=== PATIENT | male | born 1930 | race Caucasian/White ===

== ENCOUNTER 2018-11-03 09:40 | Emergency (ER) | payer OTHER ==
[~2018-11-03] VITALS: Ht 172.7 cm; Wt 88.7 kg
[2018-11-03] MEDS ORDERED: ONDANSETRON HCL4 M2 PO (09:51)
[2018-11-03] MEDS ORDERED: VITAMIN D31000 UNIT PO (09:52)
[2018-11-03] MEDS ORDERED: B12INJ PO (09:52)
[2018-11-03] MEDS ORDERED: HYTRIN 1 MG CAP1 MG PO (09:53)
[2018-11-03] MEDS ORDERED: PHENOBARBITAL97.2 M2 PO (09:53)
[2018-11-03] MEDS ORDERED: LAMICTAL XR100 MG PO (09:54)
[2018-11-03] MEDS ORDERED: HYDROCHLOROTH12.5 M1 PO (09:54)
[2018-11-03] MEDS ORDERED: KEPPRA750 MG PO (09:54)
[2018-11-03] MEDS ORDERED: CALCIUM 600 +1 EAC1 PO (09:55)
[2018-11-03] MEDS ORDERED: LIPITOR10 MG PO (09:55)
[2018-11-03] MEDS ORDERED: ASPIR 8181 MG PO (09:56)
[2018-11-03] MEDS ORDERED: COLACE100 MG PO (09:57)
[2018-11-03] MEDS ORDERED: VISTARIL 25 MG25 M1 PO (09:57)
[2018-11-03] MEDS ORDERED: TAMIFLU75 MG PO (09:58)
[2018-11-03] MEDS ORDERED: COUMADIN 1MG TAB1 M1 PO (09:58)
[2018-11-03] MEDS ORDERED: COUMADIN 3 MG TA3 MG PO (09:58)
[2018-11-03 12:22] VITALS: BP 133/107
== END 2018-11-03 12:22 | disposition home or self-care (01) ==
LOC: M.ERS 09:40
DX: S00.81XA Abrasion of other part of head, initial encounter (principal); R10.31 Right lower quadrant pain; W01.0XXA Fall on same level from slipping, tripping and stumbling without subsequent striking against object, initial encounter; Y93.89 Activity, other specified; Y92.89 Other specified places as the place of occurrence of the external cause; Y99.8 Other external cause status

== ENCOUNTER 2018-11-13 14:16 | Inpatient (IN) | payer OTHER ==
[~2018-11-13] VITALS: Ht 162.6 cm; Wt 86.6 kg
[~2018-11-13 14:16] MED LIST: ASPIR 8181 MG PO; B12INJ PO; CALCIUM 600 +1 EAC1 PO; COLACE100 MG PO; COUMADIN 1MG TAB1 M1 PO; COUMADIN 3 MG TA3 MG PO; HYDROCHLOROTH12.5 M1 PO; HYTRIN 1 MG CAP1 MG PO; KEPPRA750 MG PO; LAMICTAL100 MG PO; LIPITOR10 MG PO; ONDANSETRON HCL4 M2 PO; PHENOBARBITAL97.2 M2 PO; TAMIFLU75 MG PO; VISTARIL 25 MG25 M1 PO; VITAMIN D31000 UNIT PO
[2018-11-13 14:17] VITALS: BP 96/65
[2018-11-13 14:29] LABS: ABSOLUTE EOSINOPHILS 0.1 thou/uL (0.0-0.7); ABSOLUTE LYMPHOCYTES 1.7 thou/uL (0.8-5.3); ABSOLUTE MONOCYTES 1.1 thou/uL (0.0-1.2); ABSOLUTE NEUTROPHILS 4.9 thou/uL (1.6-8.1); BASOPHILS 0.6 %; EOSINOPHILS 0.8 %; HEMATOCRIT 33.8 % (42.0-52.0); HEMOGLOBIN 11.7 gm/dL (14.0-18.0); LYMPHOCYTES 21.8 %; MCH 33.1 pg (26.0-34.0); MCHC 34.6 g/dL (28.0-37.0); MCV 95.6 fL (80.0-100.0); MONOCYTES 13.8 %; MPV 7.3 fl. (7.2-11.1); NUCLEATED RBCS 0 /100WBC; PLATELET COUNT* 377 thou/uL (150-400); RBC 3.54 mil/uL (4.50-6.00); RDW-CV 13.4 % (10.5-14.5); WBC 7.8 thou/uL (4.0-11.0)
[2018-11-13] MEDS ORDERED: AMLODIPINE BESY10 MG PO (14:30)
[2018-11-13 14:39] LABS: APTT 40.8 Seconds (25.0-31.3); INR 3.7; PROTIME 37.5 Seconds (9.20-11.50)
[2018-11-13 14:48] LABS: ANION GAP 4 mmol/L (7-16); BUN 21 mg/dL (7-18); CHLORIDE 100 mmol/L (98-107); CO2 36 mmol/L (21-32); CREATININE 1.4 mg/dL (0.6-1.3); GLUCOSE 127 mg/dL (70-99); POTASSIUM 3.1 mmol/L (3.5-5.1); SODIUM 140 mmol/L (136-145); TROPONIN-I LEVEL <0.06 ng/mL (<0.06)
[2018-11-13 14:50] LABS: ALBUMIN 2.9 g/dL (3.4-5.0); ALKALINE PHOSPHATASE 93 U/L (46-116); CALCIUM 12.4 mg/dL (8.5-10.1); NT-PRO BRAIN NAT PEPTIDE 192 pg/mL (<300); SGOT 22 U/L (15-37); SGPT 12 U/L (30-65); TOTAL BILIRUBIN 0.2 mg/dL (<0.1-1.0); TOTAL PROTEIN 6.7 g/dL (6.4-8.2)
[2018-11-13 15:56] VITALS: BP 96/65
[2018-11-13 16:58] LABS: URINE BILIRUBIN NEGATIVE (Negative); URINE BLOOD NEGATIVE (Negative); URINE CLARITY CLEAR; URINE COLOR YELLOW; URINE GLUCOSE-RANDOM NEGATIVE (Negative); URINE KETONES NEGATIVE (Negative); URINE LEUKOCYTES-REFLEX NEGATIVE (Negative); URINE NITRITE-REFLEX NEGATIVE (Negative); URINE PROTEIN NEGATIVE (Negative); URINE SPECIFIC GRAVITY 1.015 (1.005-1.030); URINE UROBILINOGEN 0.2 E.U./dl (0.2-1.0)
[2018-11-13 20:00] VITALS: BP 154/62
[2018-11-14] VITALS (7 sets, daily range): BP systolic 111–149; BP diastolic 61–86
[2018-11-14 08:30] LABS: CALCIUM 11.6 mg/dL (8.5-10.1); POTASSIUM 3.6 mmol/L (3.5-5.1)
[2018-11-14 08:37] LABS: CALCIUM 11.4 mg/dL (8.5-10.1)
[2018-11-14 11:26] LABS: CREATININE 1.1 mg/dL (0.6-1.3)
--- NOTE | 2018-11-14 14:32 | EKG ---
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 : 1930 Requested By: Ramirez Cade Order Number: [id number] MD: Frankie Villanueva Measurements Intervals [place] Rate: 78 P: 14 TN: 143 QRS: -14 QRSD: 109 T: 51 QT: 387 QTc: 441 Interpretive Statements Sinus rhythm Abnormal R-wave progression, early transition Borderline T abnormalities, anterior leads No previous ECG available for comparison Electronically Signed On 11-14-2018 14:32:06 CDT by Frankie Villanueva [email or web address] <ELECTRONICALLY SIGNED> By: Frankie Villanueva MD, [facility] 11/14/18 1432 1414 141 Frankie Villanueva MD, FAC /EPI
[2018-11-15] VITALS: BP 166/98
[2018-11-15 04:09] VITALS: BP 170/87
[2018-11-15 07:40] VITALS: BP 145/73
[2018-11-15 10:45] LABS: INR 2.8; PROTIME 28.9 Seconds (9.20-11.50)
[2018-11-15 16:00] VITALS: BP 125/66
[2018-11-15 17:15] VITALS: BP 134/65
[2018-11-15 20:10] VITALS: BP 149/74
[2018-11-16 04:28] LABS: HEMATOCRIT 33.2 % (42.0-52.0); HEMOGLOBIN 11.4 gm/dL (14.0-18.0); MCH 32.9 pg (26.0-34.0); MCHC 34.3 g/dL (28.0-37.0); MCV 95.8 fL (80.0-100.0); MPV 7.3 fl. (7.2-11.1); RBC 3.47 mil/uL (4.50-6.00); RDW-CV 13.3 % (10.5-14.5); WBC 5.8 thou/uL (4.0-11.0)
[2018-11-16 04:30] VITALS: BP 160/75
[2018-11-16 04:35] LABS: INR 1.8; PROTIME 18.1 Seconds (9.20-11.50)
[2018-11-16 04:48] LABS: CALCIUM 11.1 mg/dL (8.5-10.1); MAGNESIUM 1.7 mg/dL (1.8-2.4); POTASSIUM 3.9 mmol/L (3.5-5.1)
[2018-11-16 08:25] VITALS: BP 160/76
[2018-11-16 12:00] VITALS: BP 143/56
[2018-11-16 16:00] VITALS: BP 128/63
[2018-11-17] VITALS: BP 157/73
[2018-11-17 02:05] LABS: LEVETIRACETAM (KEPPRA) 13.6 ug/mL (10.0-40.0)
[2018-11-17 04:00] VITALS: BP 170/75
[2018-11-17 04:32] LABS: INR 1.3
[2018-11-17 08:30] VITALS: BP 165/84
[2018-11-17 12:30] VITALS: BP 107/57
[2018-11-17 16:00] VITALS: BP 126/66
[2018-11-17 20:00] VITALS: BP 130/47
[2018-11-18 05:08] LABS: INR 1.1; PROTIME 11.7 Seconds (9.20-11.50)
[2018-11-18 08:00] VITALS: BP 151/69
[2018-11-18 20:00] VITALS: BP 132/65
[2018-11-19 04:47] LABS: INR 1.6; PROTIME 15.9 Seconds (9.20-11.50)
[2018-11-19 05:05] LABS: CALCIUM 10.1 mg/dL (8.5-10.1); CREATININE 1.2 mg/dL (0.6-1.3); POTASSIUM 4.1 mmol/L (3.5-5.1)
[2018-11-19 11:02] VITALS: BP 132/65
[2018-11-19 11:54] VITALS: BP 131/59
[2018-11-19 15:56] VITALS: BP 132/65
== END 2018-11-19 15:40 | DRG 70 ==
LOC: M.ERS 14:16 → M.3W 15:17 → M.TBA-ER 15:17 → M.3W 16:08
PROVIDERS: Family Medicine; Internal Medicine; ADMIT Internal Medicine
DX: G93.41 Metabolic encephalopathy (principal); N17.0 Acute kidney failure with tubular necrosis; C64.9 Malignant neoplasm of unspecified kidney, except renal pelvis; D68.59 Other primary thrombophilia; E44.0 Moderate protein-calorie malnutrition; Z79.01 Long term (current) use of anticoagulants; G30.9 Alzheimer's disease, unspecified; F02.80 Dementia in other diseases classified elsewhere, unspecified severity, without behavioral disturbance, psychotic disturbance, mood disturbance, and anxiety; I12.9 Hypertensive chronic kidney disease with stage 1 through stage 4 chronic kidney disease, or unspecified chronic kidney disease; N18.2 Chronic kidney disease, stage 2 (mild); G40.909 Epilepsy, unspecified, not intractable, without status epilepticus; E87.6 Hypokalemia; E83.52 Hypercalcemia; M17.0 Bilateral primary osteoarthritis of knee; S80.811A Abrasion, right lower leg, initial encounter; Y93.89 Activity, other specified; X58.XXXA Exposure to other specified factors, initial encounter; Y92.89 Other specified places as the place of occurrence of the external cause; Y99.8 Other external cause status; Z68.32 Body mass index [BMI] 32.0-32.9, adult

== ENCOUNTER 2019-05-18 23:44 | Inpatient (IN) | payer OTHER ==
[~2019-05-18] VITALS: Ht 177.8 cm; Wt 90.3 kg
[~2019-05-18 23:44] MED LIST changes: +AMLODIPINE BESY10 MG PO; +KEPPRA 500 MG500 MG PO; -KEPPRA750 MG PO; +PHENOBARBITAL30 MG PO; -PHENOBARBITAL97.2 M2 PO
[2019-05-18 23:47] VITALS: BP 143/66
[2019-05-18] MEDS ORDERED: VITAMIN D31000 UNI3 PO (23:55)
[2019-05-18] MEDS ORDERED: ARICEPT10 M1 PO (23:57)
[2019-05-19] VITALS (9 sets, daily range): BP systolic 100–141; BP diastolic 49–71
[2019-05-19 00:27] LABS: ABSOLUTE LYMPHOCYTES 0.8 thou/uL (0.8-5.3); ABSOLUTE MONOCYTES 0.8 thou/uL (0.0-1.2); BASOPHILS 0.5 %; EOSINOPHILS 0.5 %; HEMATOCRIT 36.5 % (42.0-52.0); HEMOGLOBIN 12.3 gm/dL (14.0-18.0); LYMPHOCYTES 9.6 %; MCHC 33.7 g/dL (28.0-37.0); MCV 94.8 fL (80.0-100.0); MPV 7.6 fl. (7.2-11.1); NUCLEATED RBCS 0 /100WBC; PLATELET COUNT* 258 thou/uL (150-400); POLYS 80.4 %; RBC 3.85 mil/uL (4.50-6.00); RDW-CV 14.3 % (10.5-14.5); WBC 8.7 thou/uL (4.0-11.0)
[2019-05-19 00:38] LABS: CALCIUM 9.6 mg/dL (8.5-10.1); CREATININE 1.4 mg/dL (0.6-1.3); POTASSIUM 3.3 mmol/L (3.5-5.1)
[2019-05-19 00:40] LABS: INR 1.6; PROTIME 16.2 Seconds (9.20-11.50)
[2019-05-19 00:49] LABS: ALBUMIN 3.3 g/dL (3.4-5.0); TOTAL BILIRUBIN 0.2 mg/dL (<0.1-1.0)
[2019-05-19 01:22] LABS: URINE BILIRUBIN NEGATIVE (Negative); URINE BLOOD TRACE (Negative); URINE CLARITY CLEAR; URINE COLOR YELLOW; URINE GLUCOSE-RANDOM NEGATIVE (Negative); URINE KETONES TRACE (Negative); URINE LEUKOCYTES-REFLEX NEGATIVE (Negative); URINE NITRITE-REFLEX NEGATIVE (Negative); URINE PROTEIN TRACE (Negative); URINE SPECIFIC GRAVITY 1.015 (1.005-1.030); URINE UROBILINOGEN 0.2 E.U./dl (0.2-1.0)
[2019-05-19 02:26] LABS: BE -7.2 mmol/L (-2 to +3); PCO2 40.5 mmHg (35.0-45.0); PO2 102.6 mmHg (75.0-100.0)
[2019-05-19 02:28] LABS: pH 7.288 (7.340-7.450)
[2019-05-19 09:52] LABS: POTASSIUM 3.4 mmol/L (3.5-5.1)
[2019-05-19 11:02] LABS: BE 0.1 mmol/L (-2 to +3); PCO2 43.9 mmHg (35.0-45.0); pH 7.381 (7.340-7.450)
[2019-05-20] VITALS (8 sets, daily range): BP systolic 122–163; BP diastolic 57–72
[2019-05-20 04:00] LABS: HEMATOCRIT 33.8 % (42.0-52.0); HEMOGLOBIN 11.3 gm/dL (14.0-18.0); MCHC 33.3 g/dL (28.0-37.0); MCV 95.9 fL (80.0-100.0); MPV 7.5 fl. (7.2-11.1); RBC 3.52 mil/uL (4.50-6.00); RDW-CV 14.8 % (10.5-14.5); WBC 9.3 thou/uL (4.0-11.0)
[2019-05-20 04:18] LABS: INR 1.4; PROTIME 14.1 Seconds (9.20-11.50)
[2019-05-20 04:24] LABS: CALCIUM 9.6 mg/dL (8.5-10.1); MAGNESIUM 2.1 mg/dL (1.8-2.4); POTASSIUM 4.3 mmol/L (3.5-5.1)
[2019-05-21] VITALS: BP 129/60
[2019-05-21 04:00] VITALS: BP 137/59
[2019-05-21 08:25] VITALS: BP 152/64
--- NOTE | 2019-05-21 08:37 | EKG ---
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1930 Requested By: Nichole Chakraborty Order Number: [id number] Gurwinder MD: Leoncio Barker Measurements Intervals [place] Rate: 93 P: 60 TX: 175 QRS: -28 QRSD: 106 T: 37 QT: 380 QTc: 473 Interpretive Statements Sinus rhythm Left axis deviation Abnormal R-wave progression, late transition Minimal ST depression, lateral leads Compared to ECG 11/13/2018 14:14:23 ST (T wave) deviation now present T-wave abnormality no longer present Electronically Signed On 05-21-2019 8:37:13 CDT by Leoncio Barker [email or web address] <ELECTRONICALLY SIGNED> By: Leoncio Barker MD, FACC 05/21/19 0837 2350 2350 Leoncio Barker MD, FACC /EPI
[2019-05-21 12:35] VITALS: BP 133/61
[2019-05-21 16:58] VITALS: BP 126/56
[2019-05-21 20:10] VITALS: BP 125/54
[2019-05-22] VITALS: BP 146/62
[2019-05-22 04:00] VITALS: BP 93/58
[2019-05-22 08:00] VITALS: BP 143/69
[2019-05-22 10:43] VITALS: BP 143/62
[2019-05-22] MEDS ORDERED: DIPHENHYDRAMINE25 M3 PO (12:47)
[2019-05-22] MEDS ORDERED: LEVETIRACETAM500 M1 PO (13:16)
[2019-05-22] MEDS ORDERED: MELATONIN5 MG PO (13:36)
[2019-05-22] MEDS ORDERED: MILK OF MA2400 MG/11 PO (13:39)
[2019-05-22] MEDS ORDERED: MYLANTA TONIGH355 ML PO (13:41)
[2019-05-22 13:54] VITALS: BP 143/62
[2019-05-23 07:07] LABS: LEVETIRACETAM (KEPPRA) 11.6 ug/mL (10.0-40.0)
== END 2019-05-22 16:55 | DRG 100 ==
LOC: M.ERS 23:44 → M.ICU 05-19 01:37 → M.TBA-ER 05-19 01:37 → M.2W 05-19 01:37 → M.ICU 05-19 02:42 → M.2W 05-20 21:00
PROVIDERS: Emergency Medicine; Internal Medicine; ADMIT Internal Medicine
DX: G40.409 Other generalized epilepsy and epileptic syndromes, not intractable, without status epilepticus (principal); J69.0 Pneumonitis due to inhalation of food and vomit; J96.92 Respiratory failure, unspecified with hypercapnia; D68.59 Other primary thrombophilia; E87.2 Acidosis; I48.0 Paroxysmal atrial fibrillation; G30.9 Alzheimer's disease, unspecified; F02.80 Dementia in other diseases classified elsewhere, unspecified severity, without behavioral disturbance, psychotic disturbance, mood disturbance, and anxiety; M17.0 Bilateral primary osteoarthritis of knee; F41.1 Generalized anxiety disorder; N18.3 Chronic kidney disease, stage 3 (moderate); E78.5 Hyperlipidemia, unspecified; N40.0 Benign prostatic hyperplasia without lower urinary tract symptoms; I12.9 Hypertensive chronic kidney disease with stage 1 through stage 4 chronic kidney disease, or unspecified chronic kidney disease; F32.9 Major depressive disorder, single episode, unspecified; R31.0 Gross hematuria; Z85.528 Personal history of other malignant neoplasm of kidney; Z86.718 Personal history of other venous thrombosis and embolism; Z79.01 Long term (current) use of anticoagulants

== ENCOUNTER 2019-08-20 21:59 | Inpatient (IN) | payer MEDICARE ==
[~2019-08-20] VITALS: Ht 167.6 cm; Wt 93.6 kg
[~2019-08-20 21:59] MED LIST changes: +ARICEPT10 M1 PO; +DIPHENHYDRAMINE25 M3 PO; +LEVETIRACETAM500 M1 PO; +MELATONIN5 MG PO; +MILK OF MA2400 MG/11 PO; +MYLANTA TONIGH355 ML PO; +VITAMIN D32000 UNIT PO
[2019-08-20 22:10] VITALS: BP 168/89
[2019-08-20 22:39] LABS: ABSOLUTE BASOPHILS 0.1 thou/uL (0.0-0.2); ABSOLUTE LYMPHOCYTES 0.9 thou/uL (0.8-5.3); ABSOLUTE NEUTROPHILS 10.3 thou/uL (1.6-8.1); BASOPHILS 0.7 %; EOSINOPHILS 0.1 %; HEMATOCRIT 37.2 % (42.0-52.0); HEMOGLOBIN 12.3 gm/dL (14.0-18.0); LYMPHOCYTES 7.1 %; MCH 31.7 pg (26.0-34.0); MCHC 33.1 g/dL (28.0-37.0); MCV 95.6 fL (80.0-100.0); MONOCYTES 8.5 %; MPV 7.6 fl. (7.2-11.1); NUCLEATED RBCS 0 /100WBC; PLATELET COUNT* 288 thou/uL (150-400); POLYS 83.6 %; RBC 3.89 mil/uL (4.50-6.00); WBC 12.3 thou/uL (4.0-11.0)
[2019-08-20 22:44] LABS: URINE BILIRUBIN NEGATIVE (Negative); URINE BLOOD 1+ (Negative); URINE CLARITY CLEAR; URINE COLOR YELLOW; URINE GLUCOSE-RANDOM NEGATIVE (Negative); URINE KETONES 1+ (Negative); URINE LEUKOCYTES-REFLEX NEGATIVE (Negative); URINE NITRITE-REFLEX NEGATIVE (Negative); URINE PROTEIN NEGATIVE (Negative); URINE SPECIFIC GRAVITY 1.015 (1.005-1.030); URINE UROBILINOGEN 0.2 E.U./dl (0.2-1.0)
[2019-08-20 22:50] LABS: MUCUS None Seen strn/LPF (None Seen); SQUAMOUS 0-3 Few /LPF (0-3)
[2019-08-20 22:51] LABS: CASTS None Seen /LPF (None Seen); URINE RBC 0-2 Rare /HPF (0-2)
[2019-08-20 22:52] LABS: BACTERIA-REFLEX 1-9 Few /HPF (None Seen); CRYSTALS None Seen /LPF (None Seen); URINE WBC-REFLEX None Seen /HPF (0-5)
[2019-08-20 22:55] LABS: CALCIUM 8.9 mg/dL (8.5-10.1); CREATININE 1.2 mg/dL (0.6-1.3); POTASSIUM 3.6 mmol/L (3.5-5.1)
[2019-08-20 22:59] LABS: ALBUMIN 3.2 g/dL (3.4-5.0); TOTAL BILIRUBIN 0.2 mg/dL (<0.1-1.0)
[2019-08-20 23:11] LABS: INR 2.5; PROTIME 25.2 Seconds (9.20-11.50)
[2019-08-20 23:31] LABS: INFLUENZA A ANTIGEN Negative (Negative); INFLUENZA B ANTIGEN Negative (Negative)
[2019-08-21] VITALS (17 sets, daily range): BP systolic 109–154; BP diastolic 54–74
--- NOTE | 2019-08-21 00:49 | NUR ---
PT ACTIVELY SEIZING @ 0031; AT BEDSIDE; ORDERS RECEIVED FOR IV ATIVAN; SEIZURE PRECAUTIONS IN PLACE WILL CONTINUE TO MONITOR CLOSELY
--- NOTE | 2019-08-21 06:38 | NUR ---
PT CURRENTLY AWAKE ALERT TO SELF, FOLLOW COMMANDS, MOVING ALL EXTREMETIES TURNED AND PERICARE PROVIDED WILL CONTINUE TO MONITOR
--- NOTE | 2019-08-21 09:17 | NUR ---
PT HAS AN OUT OF HOSPITAL DNR, WILL SPEAK WITH PHYSICIAN ABOUT GETTING DNR ORDERED HERE
[2019-08-21] MEDS ORDERED: FLEET ENEMA133 ML RECTAL (09:45)
[2019-08-21] MEDS ORDERED: GERI-LANTA LIQ355 M1 PO (09:48)
--- NOTE | 2019-08-21 10:24 | EKG ---
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1930 Requested By: Nichole Chakraborty Order Number: [id number] MD: Michele Galvez Measurements Intervals [place] Rate: 105 P: 58 MT: 196 QRS: -29 QRSD: 100 T: 49 QT: 365 QTc: 483 Interpretive Statements Sinus tachycardia Borderline left axis deviation Abnormal R-wave progression, late transition Borderline repolarization abnormality Borderline prolonged QT interval Compared to ECG 05/18/2019 23:50:56 Sinus rhythm no longer present Electronically Signed On 08-21-2019 10:23:52 NURSE RECRUITER by Michele Galvez [email or web address] <ELECTRONICALLY SIGNED> By: Michele Galvez MD, FACC 08/21/19 1023 05 05 Michele Galvez MD, [facility] /EPI
--- NOTE | 2019-08-21 10:40 | NUR ---
Nutrition: Pt on Regular diet but too tired to eat yet this morning. Lives at [facility]. Defer full assessment today.
--- NOTE | 2019-08-21 11:37 | NUR ---
FAXED CLINICAL UPDATES TO [facility] [phone].
--- NOTE | 2019-08-21 11:44 | NUR ---
[place]: MET WITH PT, HE WAS DROWSY AND CONFUSED. CALL TO [facility]. 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 CALL TO DTR/ANN WHALEN WHO IS DPOA. SHE STATED PT HAS HX OF SEIZURES AND ASKED TO BE SURE HIS MED LEVELS WERE CHECKED. STATED IT'S USUALLY RELATED TO 'NOT GETTING ALL HIS MED.' ASSURED HER AND PASSED ON TO NURSE. 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 COPY OF DPOA AND OUTSIDE DNR ON CHART. FAXED UPDATED CLINICAL TO [facility]. WILL FOLLOW
[2019-08-21 12:03] LABS: ABSOLUTE BASOPHILS 0.1 thou/uL (0.0-0.2); ABSOLUTE EOSINOPHILS 0.1 thou/uL (0.0-0.7); ABSOLUTE LYMPHOCYTES 1.4 thou/uL (0.8-5.3); ABSOLUTE NEUTROPHILS 5.4 thou/uL (1.6-8.1); BASOPHILS 0.7 %; EOSINOPHILS 0.6 %; HEMATOCRIT 29.9 % (42.0-52.0); LYMPHOCYTES 17.5 %; MCH 32.9 pg (26.0-34.0); MCV 96.8 fL (80.0-100.0); MONOCYTES 12.6 %; MPV 7.3 fl. (7.2-11.1); NUCLEATED RBCS 0 /100WBC; PLATELET COUNT* 219 thou/uL (150-400); POLYS 68.6 %; RBC 3.09 mil/uL (4.50-6.00); RDW-CV 13.9 % (10.5-14.5); WBC 7.9 thou/uL (4.0-11.0)
[2019-08-21 12:06] LABS: HEMOGLOBIN 10.2 gm/dL (14.0-18.0)
[2019-08-21 12:21] LABS: CALCIUM 7.8 mg/dL (8.5-10.1); CREATININE 0.9 mg/dL (0.6-1.3); MAGNESIUM 1.8 mg/dL (1.8-2.4); POTASSIUM 3.5 mmol/L (3.5-5.1)
--- NOTE | 2019-08-21 15:01 | NUR ---
1215-BEDSIDE SWALLOW COMPETED BY NURSING. PT HAD NO OVERT SIGNS OF ASPIRATION. PER DR WOLFE IF PT DID WELL WITH NURSING BEDSIDE SWALLOW HE COULD HAVE A DIET. PER [facility] INFORMATION PT DOES NOT HAVE ANY SPECIAL DIET ORDER THERE. REGULAR DIET WAS ORDERED FOR LUNCH. PT UNABLE TO FEED SELF, DRANK TEA BUT WOULD NOT TAKE OWN BITES. PT FED BY RN, TOLERATED WELL. THE ENTIRE TIME PT ASKED IF IT WAS SUPPER TIME AND IF IT WAS TIME TO GET UP TO GO TO THE [facility], INFORMED PT HE WAS IN THE HOSPITAL AND CURRENTLY EATING LUNCH. PT WOULD BE SURPRISED HE WAS IN THE HOSPITAL, ASK WHICH ONE AND THEN REPEAT ALL QUESTIONS NOT EVEN 2 MINUTES LATER.
--- NOTE | 2019-08-21 17:24 | NUR ---
SPOKE WITH DR GARRETT, HE IS OK WITH PT TRANSFERRING TO TELEMETRY
--- NOTE | 2019-08-21 18:26 | NUR ---
PT TRANSFERRED TO ROOM 221 VIA BED. ALL BELONGINGS SENT WITH PT.
[2019-08-22] VITALS: BP 133/60
[2019-08-22 04:00] VITALS: BP 144/57
--- NOTE | 2019-08-22 06:08 | NUR ---
PT SLEPT ON AND OFF THIS SHIFT. ASSESSMENT DOCUMENTED. MEDS GIVEN PER E-MAR. IV PATENT, FLUIDS INFUSING. PT ORIENTED TO SELF ONLY. PT IMPULSIVE AT TIMES. SEIZURE PRECAUTIONS IN PLACE. FALL PRECAUTIONS IN PLACE. WILL CONTINUE WITH PLAN OF CARE.
[2019-08-22 08:00] VITALS: BP 150/66
[2019-08-22 11:42] VITALS: BP 147/64
[2019-08-22] MEDS ORDERED: VIMPAT50 MG PO (12:50)
[2019-08-22 13:00] VITALS: BP 147/64
--- NOTE | 2019-08-22 13:54 | NUR ---
I have reviewed the documentation by ARIE DUBOIS from 08/22/19 to 08/22/19 and I concur with it. SHAHAB WALLACE
--- NOTE | 2019-08-22 14:31 | NUR ---
FAXED UPDATED CLINICALS TO [facility]INTAKE AT [facility]. CONFIRMED WITH [facility] THAT PATIENT WILL BE TRANSPORTED BY AMBULANCE AT 3:00 PM TODAY, 08/22/19.
--- NOTE | 2019-08-22 16:07 | NUR ---
ASSUMED PT CARE AT 0730. ASSESSMENT COMPLETED CHARTED. ABLE TO MAKE SOME NEEDS KNOWN. RESTING IN BED MOST OF THE DAY. CALLS OUT AT TIMES, OTHER TIMES IS IMPULSIVE AND CLIMBS OUT OF BED. NO C/O PAIN OR DISCOMFORT. SET UP NEEDED FOR EATING. DISCHARGE APPROVED, AND DISCHARGE PACKET MADE. IV AND HEART MONITOR REMOVED. AMBULANCE TO DELIVER PT TO [facility]. PT LEFT AROUND 1525. CALLED FOR REPORT AND GAVE REPORT AROUND 1545. PT KEPT ASKING IF HE WAS GOING HOME AND SEEMED EXCITED EACH TIME I TOLD HIM YES. NO COMMENTS, QUESTIONS, OR CONCERNS NOTED FROM NURSING STAFF.
--- NOTE | 2019-08-26 12:03 | EEG ---
[address] [address] EEG STUDY REPORT Name: ARAM SHAIKH Room: [address] IN M.R.#: [id number] Admission: 08/21/19 Attend Phys: Radha Roblero Discharge: 08/22/19 Date of : 32 Report #: [id number] THIS REPORT FOR: //name// CC: Sonny Montez DATE OF SERVICE: 08/22/2019 This patient is being evaluated for the possibility of seizure. EEG was done by placing the electrodes by standard 10-20 system of electrode placement. Both referential and sequential montages were used for recording. Background activity in this patient's EEG is about 7 Hz and 30 microvolt. The patient became drowsy and that is associated with bilateral slowing. Photic stimulation was unremarkable. IMPRESSION: This is an abnormal EEG because it is disorganized and poorly formed. That is a nonspecific abnormality, which can occur with dementia, encephalopathy, effect of psychotropic medication, etc. No active epileptiform activity was noticed. Clinical correlation is recommended. <ELECTRONICALLY SIGNED> By: Austin Archibald MD 08/26/19 1203 1229 1242Pmarquis Archibald MD /nt
--- NOTE | 2019-08-26 12:03 | CON ---
[facility] [address] [place] [address] CONSULTATION Name: ARAM SHAIKH Room: [address] IN .R.#: [id number] Admission: 08/21/19 Attend Phys: Radha Roblero Discharge: 08/22/19 Date of : 32 Report #: [id number] THIS REPORT FOR: //name// CC: Sonny Montez DATE OF SERVICE: 08/21/2019 HISTORY OF PRESENT ILLNESS: This patient is not able to provide any reliable history. I called the patient's daughter and talked to her and got history from her. I reviewed this patient's old records. I talked to the nurses looking after this patient and some of the history is taken by looking at the patient's notes. This patient has a longstanding history of seizure disorder. It apparently started in the 1950s. He usually goes to [place] for the seizures. According to the patient's daughter if he takes his medications, his seizures stays under control, but looks like he is in a snf and I assume he must be taking his medication properly, but he continued to have now seizure. He had 4 seizures yesterday. They appeared to be grand mal seizure. He is on a combination of phenobarbital, Keppra and Lamictal. Last time, the patient was seen by Dr. Doss, another neurologist and she has increased the dose of Keppra to 1000 mg b.i.d. Presently, he is on 750 b.i.d. He did have a CT scan of the head during this admission and that does not appear to be showing any abnormality. REVIEW OF SYSTEMS: Indicate that clinically it looks like he has a pretty significant dementia. He also appeared to be hard of hearing. He has a history of renal cell carcinoma, hypercapnic respiratory failure, weakness in general, seizures, Alzheimer, paroxysmal atrial fibrillation, DVT, hypercoagulable state, constipation, hypertension, anxiety. This is a relevant 14-point review of system. PAST MEDICAL HISTORY: Positive for seizure. FAMILY HISTORY: Negative for any early age stroke. SOCIAL HISTORY: He lives in a snf. PHYSICAL EXAMINATION: The patient is alert. He does not know what month it is. He does not know what hospital he is in. Cranial nerve examination 2-12 was attempted and it does not appear to be any focality. He moves all 4 extremities. There is no meningeal sign. Cardiac and respiratory examinations appear unremarkable. LABORATORY DATA: White count is 7.9; it was high earlier. CT showed no acute changes. His magnesium is normal today, but [place] [address] CONSULTATION Name: ARAM SHAIKH Room: [address] IN ..#: [id number] Admission: 08/21/19 Attend Phys: Radha Roblero Discharge: 08/22/19 Date of : 32 Report #: [id number] IMPRESSION: Breakthrough seizure. It appeared to be happening on a periodic basis. I will suggest putting the patient on Vimpat. I discussed that with the patient's daughter. Ultimately, his anticonvulsant regimen has to be simplified. I will suggest building up the Vimpat as an outpatient and then try to taper off some of his other anticonvulsants. The family wants to follow this plan and we will do that. About 50 minutes of time was spent taking care of this patient today, majority counseling and coordinating. <ELECTRONICALLY SIGNED> By: Austin Archibald MD 08/26/19 1203 1229 0133Parvetony Archibald MD /nt
== END 2019-08-22 16:23 | DRG 100 ==
LOC: M.ERS 21:59 → M.ICU 08-21 00:49 → M.TBA-ER 08-21 00:49 → M.ICU 08-21 07:51 → M.2W 08-21 18:25
PROVIDERS: Emergency Medicine; Internal Medicine; ADMIT Internal Medicine
DX: G40.409 Other generalized epilepsy and epileptic syndromes, not intractable, without status epilepticus (principal); J69.0 Pneumonitis due to inhalation of food and vomit; R65.10 Systemic inflammatory response syndrome (SIRS) of non-infectious origin without acute organ dysfunction; D68.59 Other primary thrombophilia; E87.2 Acidosis; G30.9 Alzheimer's disease, unspecified; F02.80 Dementia in other diseases classified elsewhere, unspecified severity, without behavioral disturbance, psychotic disturbance, mood disturbance, and anxiety; Z66 Do not resuscitate; F41.1 Generalized anxiety disorder; F32.9 Major depressive disorder, single episode, unspecified; I12.9 Hypertensive chronic kidney disease with stage 1 through stage 4 chronic kidney disease, or unspecified chronic kidney disease; N18.3 Chronic kidney disease, stage 3 (moderate); N40.0 Benign prostatic hyperplasia without lower urinary tract symptoms; E78.5 Hyperlipidemia, unspecified; I48.0 Paroxysmal atrial fibrillation; D72.829 Elevated white blood cell count, unspecified; M17.10 Unilateral primary osteoarthritis, unspecified knee; Z79.01 Long term (current) use of anticoagulants; Z79.82 Long term (current) use of aspirin; Z79.899 Other long term (current) drug therapy; Z86.718 Personal history of other venous thrombosis and embolism; Z85.53 Personal history of malignant neoplasm of renal pelvis

== ENCOUNTER 2019-12-06 23:47 | Emergency (ER) | payer MEDICARE ==
[~2019-12-06] VITALS: Ht 170.2 cm; Wt 80.7 kg
[~2019-12-06 23:47] MED LIST changes: +FLEET ENEMA133 ML RECTAL; +GERI-LANTA LIQ355 M1 PO; +VIMPAT50 MG PO
[2019-12-06] MEDS ORDERED: LISINOPRIL2.5 MG PO (23:59)
[2019-12-07] MEDS ORDERED: VIMPAT100 MG PO
[2019-12-07] MEDS ORDERED: BUSPIRONE HCL5 GM PO
[2019-12-07] MEDS ORDERED: NAMENDA 10 MG T10 MG PO (00:01)
[2019-12-07] MEDS ORDERED: IPRAT-ALBUT 0.5-3 ML INH (00:03)
[2019-12-07] MEDS ORDERED: LORAZEPAM 22 MG/1 ML IM (00:03)
[2019-12-07 00:16] LABS: ABSOLUTE BASOPHILS 0.1 thou/uL (0.0-0.2); ABSOLUTE EOSINOPHILS 0.1 thou/uL (0.0-0.7); ABSOLUTE LYMPHOCYTES 1.5 thou/uL (0.8-5.3); ABSOLUTE MONOCYTES 0.8 thou/uL (0.0-1.2); ABSOLUTE NEUTROPHILS 4.7 thou/uL (1.6-8.1); EOSINOPHILS 1.9 %; HEMATOCRIT 37.7 % (42.0-52.0); HEMOGLOBIN 12.8 gm/dL (14.0-18.0); LYMPHOCYTES 20.8 %; MCH 32.8 pg (26.0-34.0); MCV 96.4 fL (80.0-100.0); MONOCYTES 11.7 %; MPV 7.5 fl. (7.2-11.1); NUCLEATED RBCS 0 /100WBC; PLATELET COUNT* 270 thou/uL (150-400); POLYS 64.6 %; RBC 3.92 mil/uL (4.50-6.00); WBC 7.2 thou/uL (4.0-11.0)
[2019-12-07 00:23] LABS: CALCIUM 9.3 mg/dL (8.5-10.1); POTASSIUM 3.9 mmol/L (3.5-5.1)
[2019-12-07 00:28] LABS: ALBUMIN 3.4 g/dL (3.4-5.0); TOTAL BILIRUBIN 0.3 mg/dL (<0.1-1.0)
[2019-12-07 00:51] LABS: URINE BILIRUBIN NEGATIVE (Negative); URINE BLOOD TRACE (Negative); URINE CLARITY CLEAR; URINE COLOR YELLOW; URINE GLUCOSE-RANDOM NEGATIVE (Negative); URINE KETONES NEGATIVE (Negative); URINE LEUKOCYTES-REFLEX NEGATIVE (Negative); URINE NITRITE-REFLEX NEGATIVE (Negative); URINE PROTEIN NEGATIVE (Negative); URINE SPECIFIC GRAVITY 1.015 (1.005-1.030); URINE UROBILINOGEN 0.2 E.U./dl (0.2-1.0)
[2019-12-07 02:33] VITALS: BP 159/89
== END 2019-12-07 02:35 | disposition home or self-care (01) ==
LOC: M.ERS 23:47
PROVIDERS: Emergency Medicine
DX: R25.1 Tremor, unspecified (principal); I48.0 Paroxysmal atrial fibrillation; E78.5 Hyperlipidemia, unspecified; N40.0 Benign prostatic hyperplasia without lower urinary tract symptoms; I12.9 Hypertensive chronic kidney disease with stage 1 through stage 4 chronic kidney disease, or unspecified chronic kidney disease; N18.3 Chronic kidney disease, stage 3 (moderate); Z85.528 Personal history of other malignant neoplasm of kidney